=== PATIENT | male | born 1965 | race Caucasian/White ===

== ENCOUNTER → 2016-09-08 | Outpatient (CLI) | payer MEDICARE, OTHER ==
--- NOTE | 2016-09-08 09:18 | RAD ---
Indication:Hepatitis C Grayscale images of the abdomen were obtained. Comparison none Liver:A focal mass lesion is not seen and the visualized liver Gallbladder:Normal. The common bile duct diameter of approximately 4 mm is normal Spleen:Normal Pancreas:Partially obscured but as visualized unremarkable Kidneys:There is a small left renal cyst measuring approximately 1.3 cm in greatest dimension. The kidneys are otherwise unremarkable Abdominal aorta and IVC:The abdominal aorta was partially visualized. That portion of the abdominal aorta which was seen appeared unremarkable. The visualized inferior vena cava also appeared normal Ancillary findings:None Impression:Midline structures partially obscured. A definite acute or significant finding was not seen on abdominal ultrasound exam Small left renal cyst
== END | disposition home or self-care (01) ==
LOC: US 07:56
PROVIDERS: ATTEND Internal Medicine Gastroenterology
DX: B19.20 Unspecified viral hepatitis C without hepatic coma (principal); N28.1 Cyst of kidney, acquired
CPT/HCPCS: 76700

== ENCOUNTER 2016-12-27 17:33 | Emergency (ER) | payer MEDICARE, OTHER ==
[~2016-12-27] VITALS: Ht 172.7 cm; Wt 81.6 kg
[2016-12-27 17:50] VITALS: BP 128/77
[2016-12-27] MEDS ORDERED: DICL50TA4 PO (18:42)
--- NOTE | 2016-12-27 18:43 | PHYS DOC ---
Past Medical History Past Medical History: No Pertinent History Past Surgical History: No Surgical History Alcohol Use: None Drug Use: None Adult General Chief Complaint Chief Complaint: WRIST PAIN HPI HPI Patient is a 51 year old male who presents with mild left lateral wrist pain worse on movement that began a week ago when he was moving. Patient denies any trauma. Patient denies any scaphoid tenderness. Review of Systems Review of Systems Constitutional: Denies fever or chills [] Musculoskeletal: Left wrist pain Integument: Denies rash or skin lesions [] Neurologic: Denies headache, focal weakness or sensory changes [] Endocrine: Denies polyuria or polydipsia [] Physical Exam Physical Exam Constitutional: Well developed, well nourished, no acute distress, non-toxic appearance. [] Skin: Warm, dry, no erythema, no rash. [] Back: No tenderness, no CVA tenderness. [] Extremities: Left wrist with no obvious deformity, no edema and ecchymosis. Tenderness on palpation of the left lateral wrist, with no scaphoid pain or tenderness. Full range of motion to the left wrist including flexion and extension. +2 left radial pulse. Adequate radial medial and ulnar sensation to the left hand. Cap refill less than 2 seconds the left fingers. Neurologic: Alert and oriented X 3, normal motor function, normal sensory function, no focal deficits noted. [] Psychologic: Affect normal, judgement normal, mood normal. [] Current Patient Data Vital Signs Vital Signs Date Time Temp Pulse Resp B/P (MAP) Pulse Ox O2 Delivery O2 Flow Rate FiO2 12/27/16 17:50 98.8 76 16 128/77 (94) 97 Room Air 98.8 EKG EKG [] Radiology/Procedures Radiology/Procedures [] Course & Med Decision Making Course & Med Decision Making Pertinent Labs and Imaging studies reviewed. (See chart for details) Patient is in the ED with complaints of left wrist pain for one week, no known injury. Left wrist x-rays interpreted by Dr. Sierra are negative for any acute findings. Patient was placed in a vecro splint by the ED RN, neurovascular exam done by is normal, cap refill less than 2 seconds. Ice elevation encouraged. Follow-up with orthopedic doctor in one week. Dragon Disclaimer Dragon Disclaimer This electronic medical record was generated, in whole or in part, using a voice recognition dictation system. Departure Departure Impression: Primary Impression: Left wrist sprain Disposition: HOME, SELF-CARE Condition: STABLE Referrals: DAVID GLASGOW [facility] (PCP) BILLY HUDSON MD follow up in one week Patient Instructions: Wrist Sprain with [facility] Additional Instructions: You were seen for left wrist pain suspicious for sprain or strain. Your x-rays are negative for any acute findings. Follow-up with the provided orthopedic doctor in one week. Wear the splint provided as needed and tolerated. Ice and elevate the extremity. Take the prescribed pain medicine as needed. Scripts Diclofenac Sodium (DICLOFENAC SODIUM) 50 Mg Tablet.dr 1 TAB PO BID, #60 TAB 1 Refill Prov: DONNIE MARIEE APRN 12/27/16 Problem Qualifiers Primary Impression: Left wrist sprain Encounter type: initial encounter Qualified Codes: S63.502A - Unspecified sprain of left wrist, initial encounter DONNIE MARIEE APRN Dec 27, 2016 18:43
--- NOTE | 2016-12-28 08:31 | RAD ---
Left wrist, 3 views, 12/27/2016: History: Pain No fracture or dislocation is identified. There is mild narrowing of the radiocarpal articulation. There is minimal degenerative change at the first CMC joint. IMPRESSION: No acute bony abnormality is detected.
== END 2016-12-27 18:53 | disposition home or self-care (01) ==
LOC: ER 17:33
DX: S63.502A Unspecified sprain of left wrist, initial encounter (principal); X58.XXXA Exposure to other specified factors, initial encounter; Y93.89 Activity, other specified; Y92.89 Other specified places as the place of occurrence of the external cause; Y99.8 Other external cause status
CPT/HCPCS: 29125; 73110; 99284-25

== ENCOUNTER → 2017-01-25 | Outpatient (CLI) | payer MEDICARE, OTHER ==
[2016-12-27 17:50] VITALS: BP 128/77
[~2017-01-25] MED LIST: DICL50TA4 PO
--- NOTE | 2017-01-25 12:46 | RAD ---
Indication low back pain. AP and lateral views were obtained of the lumbar spine with an additional cone-down view targeted to the lumbosacral junction. Vertebral height alignment and disc spaces are unremarkable. No acute finding is seen. Significant degenerative changes are not apparent on plain films. Vascular calcification is noted. IMPRESSION: No acute or significant finding seen on plain films of the lumbar spine
--- NOTE | 2017-01-25 14:57 | RAD ---
Indication neck pain. Lateral AP and odontoid views of the cervical spine were obtained. C1-T1 are identified. Vertebral height alignment and disc spaces are unremarkable. Significant degenerative changes involving the cervical spine are not apparent on plain films. The prevertebral soft tissues appear normal. IMPRESSION: No acute or significant finding seen on plain films of the cervical spine
== END | disposition home or self-care (01) ==
LOC: RAD 11:15
PROVIDERS: ATTEND Nurse Practitioner
DX: S16.1XXA Strain of muscle, fascia and tendon at neck level, initial encounter (principal); S39.012A Strain of muscle, fascia and tendon of lower back, initial encounter; M54.2 Cervicalgia; X58.XXXA Exposure to other specified factors, initial encounter; Y93.89 Activity, other specified; Y92.89 Other specified places as the place of occurrence of the external cause; Y99.8 Other external cause status
CPT/HCPCS: 72040; 72100

== ENCOUNTER → 2017-05-25 | Outpatient (CLI) | payer MEDICARE, OTHER ==
--- NOTE | 2017-05-26 07:21 | RAD ---
Lumbar spine, 3 views, 05/25/2017: History: Lumbar radiculopathy previous trauma, left leg pain Comparison is made to a study from 01/25/2017. The lumbar vertebral heights are well-maintained. There are mild scattered marginal spurs. Moderate spurring is evident in the lower thoracic spine. No fracture or dislocation is identified. Aortic calcific plaquing is present. IMPRESSION: 1. Mild degenerative change. 2. No acute bony abnormality is detected.
== END | disposition home or self-care (01) ==
LOC: RAD 16:23
PROVIDERS: ATTEND Internal Medicine
DX: M47.896 Other spondylosis, lumbar region (principal); M54.16 Radiculopathy, lumbar region
CPT/HCPCS: 72100

== ENCOUNTER 2017-07-12 18:08 | Emergency (ER) | payer OTHER, MEDICAID, MEDICARE ==
[2017-07-12 18:28] LABS: ADD MAN DIFF? NO
[2017-07-12 18:34] LABS: BASO # 0.1 x10^3/uL (0.0-0.2); BASO % 1 % (0-3); EOS # 0.3 x10^3/uL (0.0-0.7); EOS % 3 % (0-3); HEMATOCRIT 40.3 % (39.0-53.0); HEMOGLOBIN 13.6 g/dL (13.0-17.5); LYMPH # 1.1 x10^3/uL (1.0-4.8); LYMPH % 14 % (24-48); MEAN CORPUSCULAR HEMOGLOBIN 30 pg (25-35); MEAN CORPUSCULAR HGB CONC 34 g/dL (31-37); MEAN CORPUSCULAR VOLUME 90 fL (79-100); MONO # 0.5 x10^3/uL (0.0-1.1); MONO % 7 % (0-9); NEUT # 6.2 x10^3uL (1.8-7.7); NEUT % 75 % (31-73); PLATELET COUNT 278 x10^3/uL (140-400); RED CELL DISTRIBUTION WIDTH 13.6 % (11.5-14.5); WHITE BLOOD COUNT 8.2 x10^3/uL (4.0-11.0)
[2017-07-12] MEDS: IV NORMAL SALINE 1000ML BAG 1,000 ML IV ×2 (18:46→19:49)
[2017-07-12 18:53] LABS: ANION GAP 8 (6-14); BLOOD UREA NITROGEN 10 mg/dL (8-26); BUN/CREATININE RATIO 13 (6-20); CALCIUM 7.9 mg/dL (8.5-10.1); CARBON DIOXIDE 25 mmol/L (21-32); CHLORIDE 105 mmol/L (98-107); CREATININE 0.8 mg/dL (0.7-1.3); GFR 101.5; GLUCOSE 107 mg/dL (70-99); POTASSIUM 4.5 mmol/L (3.5-5.1); SODIUM 138 mmol/L (136-145)
[2017-07-12 19:07] LABS: ALBUMIN 2.9 g/dL (3.4-5.0); ALK PHOS 113 U/L (46-116); ALT (SGPT) 15 U/L (16-63); AST (SGOT) 9 U/L (15-37); TOTAL BILIRUBIN 0.3 mg/dL (0.2-1.0); TOTAL PROTEIN 5.7 g/dL (6.4-8.2)
[2017-07-12 19:14] LABS: TROPONINI < 0.017 ng/mL (0.000-0.055)
== END 2017-07-12 20:54 | disposition home or self-care (01) ==
LOC: ER 18:08
DX: R55 Syncope and collapse (principal); E86.0 Dehydration; H66.92 Otitis media, unspecified, left ear; I25.10 Atherosclerotic heart disease of native coronary artery without angina pectoris
CPT/HCPCS: 36415; 71045; 80053; 84484; 85025; 93005; 96360; 96361; 99285-25; J7030

== ENCOUNTER 2017-10-16 20:18 | Emergency (ER) | payer OTHER ==
[2017-10-16] MEDS: RABIES VIRUS VACC PF 2.5 UNIT / 1 ML VIAL. VAX IM ×2 (22:00)
[2017-10-16] MEDS: DIPHTH,PERTUSS(ACELL),TET TOX 0.5 ML DISP.SYRIN. VAX IM ×2 (22:18)
[2017-10-16] MEDS: LIDOCAINE WITH 8.4% SOD BICARB 3 ML DISP.SYRIN. INJ ×2 (22:19)
[2017-10-16] MEDS: RABIES IMMUNE GLOBULIN PF 150 UNIT/ML 10ML VIAL. VAX IM ×2 (22:21)
== END 2017-10-16 23:24 | disposition home or self-care (01) ==
LOC: ER 20:18
DX: S61.452A Open bite of left hand, initial encounter (principal); W54.0XXA Bitten by dog, initial encounter; Z20.3 Contact with and (suspected) exposure to rabies; Y93.89 Activity, other specified; Y99.8 Other external cause status; Y92.89 Other specified places as the place of occurrence of the external cause
CPT/HCPCS: 12001; 73130; 90375; 90471; 90472; 90675; 90715; 96372; 99284-25

== ENCOUNTER 2020-08-14 02:40 | Emergency (ER) | payer MEDICARE ==
[~2020-08-14] VITALS: Ht 172.7 cm; Wt 70.5 kg
[~2020-08-14 02:40] MED LIST changes: +ALBU2.5V8 IH; +AMOX1TAB61 PO; +ATOR40TA59 PO; +CARV6.253 PO; +CLOP75TA PO; +DICL100G28; +DIVA500T17 PO; +ISOS30TA68 PO; +LISI10TA16 PO; +NITR0.4T24 SL; +OXCA600T9 PO; +PANT40TA6 PO; +PRAZ5CAP2 PO; +QUET50TA PO; +SERT-268 PO; +TAMS0.4C97 PO
[2020-08-14 02:55] VITALS: BP 170/74
[2020-08-14 02:56] LABS: BILIRUBIN,URINE NEGATIVE (NEG); CLARITY,URINE TURBID; COLOR,URINE YELLOW; NITRITE,URINE NEGATIVE (NEG); PH,URINE 5.5 (<5.0-8.0); PROTEIN,URINE 100 mg/dL (NEG-TRACE)
[2020-08-14 03:02] LABS: BACTERIA,URINE FEW /HPF (0-FEW); RBC,URINE OCC /HPF (0-2); WBC,URINE TNTC /HPF (0-4)
--- NOTE | 2020-08-14 03:22 | PHYS DOC ---
Past Medical History Past Medical History: IN Additional Past Medical Histor: HEP C Past Surgical History: Other Additional Past Surgical Histo: TUBES PLACED IN L EAR. Smoking Status: Never Smoker Alcohol Use: None Drug Use: None General Adult EDM: Chief Complaint: URINARY RETENTION HPI: HPI: Patient is a 55 year old male presents with a chief complaint of penile discharge urinary urgency and dysuria. Discharge is yellow/GREEN. Patient is sexually active with no protection multiple partners. Review of Systems: Review of Systems: Constitutional: Denies fever or chills. [] Eyes: Denies change in visual acuity. [] HENT: Denies nasal congestion or sore throat. [] Respiratory: Denies cough or shortness of breath. [] Cardiovascular: Denies chest pain or edema. [] GI: Denies abdominal pain, nausea, vomiting, bloody stools or diarrhea. [] : Positive dysuria positive discharge Musculoskeletal: Denies back pain or joint pain. [] Integument: Denies rash. [] Neurologic: Denies headache, focal weakness or sensory changes. [] Endocrine: Denies polyuria or polydipsia. [] Lymphatic: Denies swollen glands. [] Psychiatric: Denies depression or anxiety. [] Heart Score: Risk Factors: Risk Factors: DM, Current or recent (<one month) smoker, HTN, HLP, family history of CAD, obesity. Risk Scores: Score 0 - 3: 2.5% MACE over next 6 weeks - Discharge Home Score 4 - 6: 20.3% MACE over next 6 weeks - Admit for Clinical Observation Score 7 - 10: 72.7% MACE over next 6 weeks - Early Invasive Strategies Current Medications: Current Medications Medications (Trade) Dose Ordered Sig/Elsie Start Time Stop Time Status Last Admin Dose Admin Azithromycin (Zithromax) 1,000 mg 1X ONCE 08/14/20 03:45 08/14/20 03:46 Ceftriaxone Sodium (Rocephin Im) 250 mg 1X ONCE 08/14/20 03:45 08/14/20 03:46 Allergies: Allergies: Allergies Coded Allergies Type Severity Reaction Last Updated Verified No Known Drug Allergies 06/28/19 No Physical Exam: PE: Constitutional: Well developed, well nourished, no acute distress, non-toxic appearance. [] HENT: Normocephalic, atraumatic, bilateral external ears normal, oropharynx moist, no oral exudates, nose normal. [] Eyes: PERRLA, EOMI, conjunctiva normal, no discharge. [] Neck: Normal range of motion, no tenderness, supple, no stridor. [] Cardiovascular:Heart rate regular rhythm, no murmur [] Lungs & Thorax: Bilateral breath sounds clear to auscultation [] Abdomen: Bowel sounds normal, soft, no tenderness, no masses, no pulsatile masses. [] Skin: Warm, dry, no erythema, no rash. [] Back: No tenderness, no CVA tenderness. [] Extremities: No tenderness, no cyanosis, no clubbing, ROM intact, no edema. [] Neurologic: Alert and oriented X 3, normal motor function, normal sensory function, no focal deficits noted. [] Psychologic: Affect normal, judgement normal, mood normal. [] Current Patient Data: Labs: Laboratory Tests Test 08/14/20 02:46 Urine Collection Type Unknown Urine Color Yellow Urine Clarity Turbid Urine pH 5.5 (<5.0-8.0) Urine Specific [place] >=1.030 (1.000-1.030) Urine Protein 100 mg/dL (NEG-TRACE) Urine Glucose (UA) Negative mg/dL (NEG) Urine Ketones (Stick) Negative mg/dL (NEG) Urine Blood Large (NEG) Urine Nitrite Negative (NEG) Urine Bilirubin Negative (NEG) Urine Urobilinogen Dipstick 1.0 mg/dL (0.2 mg/dL) Urine Leukocyte Esterase Large (NEG) Urine RBC Occ /HPF (0-2) Urine WBC Tntc /HPF (0-4) Urine Squamous Epithelial Cells Occ /LPF Urine Bacteria Few /HPF (0-FEW) Urine Mucus Mod /LPF EKG: EKG: [] Radiology/Procedures: Radiology/Procedures: [] Course & Med Decision Making: Course & Med Decision Making Pertinent Labs and Imaging studies reviewed. (See chart for details) [] UA GC urine obtained and pending. Patient was treated with Rocephin and Zithromax. Patient was discharged home Angeline Disclaimer: Angeline Disclaimer: This electronic medical record was generated, in whole or in part, using a voice recognition dictation system. Departure Departure Impression: Primary Impression: STD (sexually transmitted disease) Additional Impression: STD (male) Disposition: 01 DC HOME SELF CARE/HOMELESS Condition: STABLE Patient Instructions: Sexually Transmitted Disease FELICITAS CAI DO Aug 14, 2020 03:22
[2020-08-14] MEDS ORDERED: cefTRIAXone IM 250 MG VIAL IM ONE (03:45)
[2020-08-14] MEDS ORDERED: AZITHROMYCIN 250 MG TABLET. PO ONE (03:45)
== END 2020-08-14 04:15 | disposition home or self-care (01) ==
LOC: ER 02:40
DX: A64 Unspecified sexually transmitted disease (principal); I25.2 Old myocardial infarction
CPT/HCPCS: 81001; 87086; 87491; 87591; 96372; 99283; J0696